=== PATIENT | female | born 1960 | race Caucasian/White ===

== ENCOUNTER 2017-12-27 18:49 | Emergency (ER) | payer BC ==
[~2017-12-27 18:49] MED LIST changes: -ALBU2.5V36 INH; -ALBU8.5H IH; -FLUT12HF2 IH; -LEVO-85 PO; -PRED20TA6 PO
--- NOTE | 2017-12-27 18:54 | ER Report ---
History and Physical Time Seen By MD: 18:54 HPI/ROS CHIEF COMPLAINT: Dyspnea, fever, elevated d-dimer HISTORY OF PRESENT ILLNESS: 57-year-old female with a history of asthma a distant smoker, approximate 7 pack years. Presents with cold symptoms that started last week. He was feeling better. But on Friday she developed vomiting and diarrhea. She subsequently got sick on night with a productive cough and increasing shortness of breath. Tonight she presents to urgent cares severely short of breath. Her pulse ox was noted to be low. She required 2 L to get in the low 90s. She has never been on O2 except with a previous pneumonia. There is extensive diagnostic evaluation was performed at urgent care. See diagnostic laboratory work, EKG. There was a negative troponin but an elevated d-dimer of 2.65. S2 x-ray shows bilateral infiltrates. On arrival here, the patient has a fever to 102.9. She appears quite ill, ta chycardic to 115 and has increased work of breathing. Blood cultures are drawn here. Patient will be sent for pulmonary angiogram. REVIEW OF SYSTEMS: Respiratory: As above Cardiovascular: No chest pain, no palpitations. Gastrointestinal: As above Musculoskeletal: No back pain. Allergies: Coded Allergies: No Known Drug Allergies (Verified , 02/28/10) Home Meds Active Scripts Albuterol Sulfate 0.083% (ALBUTEROL SULFATE 0.083%) 2.5 Mg/3 Ml Vial.neb, 2.5 MG INH QID PRN for asthma symptoms, #25 INH Prov:VENITA CHRISTENSEN DO 12/27/17 Prednisone (PREDNISONE) 20 Mg Tablet, 40 MG PO QDAY for reduce long inflammation, #12 Prov:VENITA CHRISTENSEN DO 12/27/17 Levofloxacin 500 Mg Tab (LEVAQUIN 500 MG TAB) 500 Mg Tablet, 500 MG PO DAILY for infection, #6 TAB Prov:VENITA CHRISTENSEN DO 12/27/17 Reported Medications Albuterol Sulfate 90 Mcg/Act (PROAIR HFA 90 MCG/ACT) 8.5 Gm Hfa.aer.ad, 1-2 PUFF IH 3-4XD, INHALER 12/27/17 Fluticasone/Salmeterol (ADVAIR HFA 115-21 MCG INHALER) 12 Gm Hfa.aer.ad, 12 GM IH 12/27/17 Discontinued Reported Medications Ketorolac Tromethamine (Toradol) 10 Mg Tab, 10 MG PO Q6H, #16 TAB 0 Refills TAKE 1 BY MOUTH EVERY 6 HOURS. 03/01/10 Acetaminophen/Hydrocodone (Lortab 5/325 Mg) 5 Mg/325 Mg Tab, 1 TAB PO Q4H PRN, #30 TAB 0 Refills TAKE 1 OR 2 TABLETS BY MOUTH EVERY 4 HOURS NEEDED FOR PAIN. TAKE WITH FOOD. 03/01/10 Reviewed Nurses Notes: Yes Old Medical Records Reviewed: Yes Constitutional Vital Sign - Last 24 Hours 12/27/17 12/27/17 12/27/17 12/27/17 18:54 18:56 19:00 19:04 Temp 102.9 Pulse 115 113 Resp 20 9 B/P (MAP) 136/87 (103) 136/87 138/81 (100) Pulse Ox 92 96 O2 Delivery Nasal Cannula 12/27/17 12/27/17 12/27/17 12/27/17 19:19 19:30 19:30 19:34 Pulse 114 114 114 Resp 24 20 20 B/P (MAP) 118/83 (95) Pulse Ox 100 94 12/27/17 12/27/17 12/27/17 12/27/17 19:34 19:38 19:58 20:00 Pulse 112 Resp 20 B/P (MAP) 111/67 (82) 108/62 (77) O2 Flow Rate 2.0 12/27/17 12/27/17 12/27/17 12/27/17 20:04 20:09 20:24 20:30 Temp 100.9 Pulse 110 108 109 Resp 16 18 19 B/P (MAP) 108/61 (77) Pulse Ox 90 12/27/17 12/27/17 12/27/17 12/27/17 20:35 20:50 21:00 21:05 Pulse 105 103 100 Resp 25 20 17 B/P (MAP) 110/64 (79) Pulse Ox 92 93 82 O2 Delivery Room Air 12/27/17 12/27/17 12/27/17 12/27/17 21:10 21:20 21:30 21:35 Pulse 98 Resp 20 15 B/P (MAP) 93/60 (71) Pulse Ox 84 94 94 O2 Delivery Room Air Nasal Cannula Nasal Cannula O2 Flow Rate 2 2 12/27/17 21:40 Pulse 85 Resp 18 B/P (MAP) 102/60 (74) Pulse Ox 95 O2 Delivery Nasal Cannula O2 Flow Rate 2 Physical Exam General Appearance: The patient is alert, has no immediate need for airway protection and no current signs of toxicity. Slightly pale appearing, skin warm and dry, fatigued and tired, mild air hunger, respiratory rate mildly elevated to 24. Pulse ox 92% on 2 L HEENT: Pupils equal and round no injection. TMs normal, oropharynx with mild erythema, no exudate or petechiae Respiratory: Decreased breath sounds bilaterally, faint Piercy wheezing and Ral es noted bilaterally in the bases Cardiac: regular rate and rhythm Gastrointestinal: Abdomen is soft and non tender, no masses, bowel sounds normal. Musculoskeletal: Neck: Neck is supple and non tender. No lymphadenopathy or JVD noted Extremities have full range of motion and are non tender. No calf tenderness, no edema Skin: No rashes or lesions. DIFFERENTIAL DIAGNOSIS: After history and physical exam differential diagnosis was considered for adult fever including but not limited to viral syndromes including influenza, urinary tract infection, pneumonia and sepsis. Medical Decision Making Data Points Result Diagram: 12/27/171925 Laboratory Hematology Test 12/27/17 19:10 12/27/17 19:12 12/27/17 19:26 Lactate 1.7 mmol/L (0.7-2.1) Influenza Virus Type A (PCR) Negative (NEGATIVE) Influenza Virus Type B (PCR) Negative (NEGATIVE) Red Blood Count 5.18 M/uL (4.17-5.56) Mean Corpuscular Volume 90.1 fL (80.0-96.0) Mean Corpuscular Hemoglobin 30.9 pg (26.0-33.0) Mean Corpuscular Hemoglobin Concent 34.3 g/dL (32.0-36.0) Red Cell Distribution Width 13.1 % (11.5-14.5) Mean Platelet Volume 8.1 fL (7.2-11.1) Neutrophils % (Manual) 83 % (39.4-72.5) Band Neutrophils % 3 % Lymphocytes % (Manual) 6 % (17.6-49.6) Atypical Lymphocytes % 3 % Monocytes % (Manual) 4 % (4.1-12.4) Eosinophils % (Manual) 1 % (0.4-6.7) Basophils % (Manual) 0 % (0.3-1.4) Chemistry Test 12/27/17 19:10 12/27/17 19:12 12/27/17 19:26 Lactate 1.7 mmol/L (0.7-2.1) Influenza Virus Type A (PCR) Negative (NEGATIVE) Influenza Virus Type B (PCR) Negative (NEGATIVE) White Blood Count 7.8 k/uL (4.5-11.0) Red Blood Count 5.18 M/uL (4.17-5.56) Hemoglobin 16.0 g/dL (12.0-16.0) Hematocrit 46.7 % (34.0-47.0) Mean Corpuscular Volume 90.1 fL (80.0-96.0) Mean Corpuscular Hemoglobin 30.9 pg (26.0-33.0) Mean Corpuscular Hemoglobin Concent 34.3 g/dL (32.0-36.0) Red Cell Distribution Width 13.1 % (11.5-14.5) Platelet Count 197 K/uL (150-450) Mean Platelet Volume 8.1 fL (7.2-11.1) Neutrophils % (Manual) 83 % (39.4-72.5) Band Neutrophils % 3 % Lymphocytes % (Manual) 6 % (17.6-49.6) Atypical Lymphocytes % 3 % Monocytes % (Manual) 4 % (4.1-12.4) Eosinophils % (Manual) 1 % (0.4-6.7) Basophils % (Manual) 0 % (0.3-1.4) Microbiology Microbiology Date/Time Source Procedure Growth Status 12/27/17 19:11 Blood Peripheral Draw Blood Culture - Preliminary NO GROWTH AFTER 1 DAY, REINCUBATED Resulted 12/27/17 19:10 Blood Peripheral Draw Blood Culture - Preliminary NO GROWTH AFTER 1 DAY, REINCUBATED Resulted EKG/Imaging EKG Interpretation 12 lead EK Rhythm: Sinus tachycardia, rate 112 bpm [place]: normal QRS: normal ST segments: normal, no minute of ischemia or dysrhythmia Imaging Results: CT scan of the CTA pulmonary angiogram was obtained. The results of the study are CTA CHEST WW/O CNTR (PULM ANG) HISTORY: BIlat inf elevated d-dimer 2.5 One of the following dose optimization techniques was utilized in the performance of this exam: Automated exposure control; adjustment of the mA and/or kV according to the patient's size; or use of an iterative reconstruction technique. Specific details can be referenced in the facility's radiology CT exam operational policy. TECHNIQUE: CTA chest with contrast. 3D coronal slab MIPs and 2D re constructions in the coronal and sagittal planes were also created. CONTRAST: 75 mL of Isovue-370 COMPARISON: None. FINDINGS: Vessels: Well-opacified pulmonary arteries with no intraluminal filling defect to suggest a pulmonary embolus. Heart and pericardium: Aortic arch is well-maintained. Brachycephalic vessels are normal. Mediastinum and hilum: Negative. Lymph nodes: There are scattered moderately prominent lymph nodes seen in both hilar regions with confluence lymph node mass of approximately 1.7 cm in the right hilum (image 134. Similar-appearing lymph node or masses seen in the left hilum (image 144) there are also apparent reactive periaortic lymph nodes measuring up to 1.5 cm in size as well as pretracheal and subcarinal lymph nodes of similar sizes. Lungs/pleura: There is extensive interstitial alveolar infiltrative change throughout the left lower lung occupying most of the posterior lateral and anterior segments. Extends to a lesser degree in the lingular segment. Patchy less extensive infiltrative changes seen in the right lower lung involving the superior segment as well as the lateral posterior medial segments of the left lower lung. Visualized upper abdomen: Negative. Lower neck: Negative. Bones/soft tissues: Negative. IMPRESSION: 1. Bilateral lower lobe pneumonic infiltrates left greater than right. This is associated with reactive adenopathy 2. No evidence of pulmonary embolus. The study was read by the radiologist. I viewed the images myself on the PACS system. ED Course/Re-evaluation Clinical Indication for ER IV: Hydration, IV Access ED Course Patient was admitted to an examination room. H&P was done. The differential diagnoses was considered. Data from urgent care was reviewed. Chest x-ray shows bilateral infiltrates. White blood cell count is 8.5 with a left shift. Remainder of the diagnostic laboratories are unremarkable. Troponin is negati ve. D-dimer 2.57. Patient was sent over with a peripheral IV for CTA pulmonary angiogram. A lactate, EKG repeat CBC with manual differential, influenza, and blood cultures were ordered. Patient was treated with Solu- Medrol 125 mg, a DuoNeb and 1 L of saline wide open. She should be on sepsis p rotocol. Patient's CT angiogram is negative. Her results were discussed with her. I did offer her admission. She would like to go home, however. Home oxygen will be set up. Since she is hypoxic. Her daughter is a nurse urinary emergency department and is discussed this with her at length and she is agreeable to going home. I think it safe with her current vital signs. Her lactate was not elevated. She is given 2 g of Rocephin IV, Levaquin 500 mg by mouth suggest heart home on Levaquin. Prednisone. She has access to a nebulizer at home. Home O2 was arranged. Patient's discharged home. Patient is advised a low threshold return for any worsening. Decision to Disposition Date: Dec 27, 2017 Decision to Disposition Time: 19:16 Depart Departure Latest Vital Signs Vital Signs Date Time Temp Pulse Resp B/P (MAP) Pulse Ox O2 Delivery O2 Flow Rate FiO2 12/27/17 21:40 85 18 102/60 (74) 95 Nasal Cannula 2 12/27/17 20:30 100.9 Impression: Primary Impression: Bilateral pneumonia Additional Impressions: History of asthma Hypoxia Condition: Improved Disposition: HOME OR SELF-CARE Referrals: [facility] (PCP) New Scripts Albuterol Sulfate 0.083% (ALBUTEROL SULFATE 0.083%) 2.5 Mg/3 Ml Vial.neb 2.5 MG INH QID PRN for asthma symptoms, #25 INH Prov: VENITA CHRISTENSEN DO 12/27/17 Prednisone (PREDNISONE) 20 Mg Tablet 40 MG PO QDAY for reduce long inflammation, #12 Prov: VENITA CHRISTENSEN DO 12/27/17 Levofloxacin 500 Mg Tab (LEVAQUIN 500 MG TAB) 500 Mg Tablet 500 MG PO DAILY for infection, #6 TAB Prov: VENITA CHRISTENSEN DO 12/27/17 Departure Forms: ER Transition Record, Home Oxygen, Nebulizer RX, Home Oxygen Company Chosen by Patient: [employer] Medical Equipment-Oxygen: Oxygen Concentrator, Portable Oxygen Gas Reason for Use/Diagnosis: Bilateral pneumonia and hypoxia, room air saturation 85%, requiring 2 L Start Date of the Order: Dec 27, 2017 Dosage or Concentration (if applicable) - LPM: 2 Route of Administration (if applicable): Nasal Cannula Frequency of Use: Continuous Duration Home O2 Required: 99 Duration Units: Days Room Air Oxygen Saturation: 78 ER Prescribing Physician's Name: Venita Christensen Patient Portal Information Patient Instructions: Asthma (ED), Community Acquired Pneumonia (ED) Additional Instructions: Follow-up with your physician on Friday for recheck Return to the ER for any worsening Problem Qualifiers Primary Impression: Bilateral pneumonia Pneumonia type: due to unspecified organism Lung location: lower lobe of lung Qualified Codes: J18.1 - Lobar pneumonia, unspecified organism VENITA CHRISTENSEN DO Dec 27, 2017 18:54
[2017-12-27] MEDS ORDERED: NS(*) 0.9% 1000 ML BAG 1,000 ML IV ONE ×2 (19:00→20:25)
[2017-12-27] MEDS ORDERED: methylPREDNIS SUCC 125 MG/2ML IVP ONE (19:00)
[2017-12-27] MEDS ORDERED: ALBUTEROL/IPRATROPIUM 3 ML NEB NEB ONE ×2 (19:00→21:10)
[2017-12-27] MEDS ORDERED: FLUT12HF2 IH (19:02)
[2017-12-27] MEDS ORDERED: ALBU8.5H IH (19:02)
[2017-12-27] MEDS ORDERED: ACETAMINOPHEN 325 MG TAB PO ONE (19:10)
[2017-12-27] MEDS ORDERED: IOPAMIDOL 76% 75 ML INFUS BTL 75 ML ONE (19:14)
[2017-12-27] MEDS ORDERED: NS(*) 0.9% 50 ML BAG 50 ML ONE (19:14)
[2017-12-27 19:35] LABS: PLATELET COUNT, AUTOMATED 197 K/uL (150-450)
[2017-12-27] MEDS ORDERED: cefTRIAXone 2 GM VIAL IVP ONE (20:50)
[2017-12-27] MEDS ORDERED: LEVOFLOXACIN 500 MG TAB PO ONE (20:50)
--- NOTE | 2017-12-27 20:51 | EKG ---
FACILITY: [facility] - [place] PATIENT NAME: KATRIN LOVE : [id number] MR: [id number] V: [id number] EXAM DATE: ORDERING PHYSICIAN: VENITA CRESPO TECHNOLOGIST: VALARIE Test Reason : DYSPNEA Blood Pressure : / mmHG Vent. Rate : 112 BPM Atrial Rate : 112 BPM P-R Int : 130 ms QRS Dur : 078 ms QT Int : 336 ms P-R-T Axes : 073 085 065 degrees QTc Int : 458 ms Sinus tachycardia No acute appearing findings No old EKGs Confirmed by MARGARITA STACY ([id number]) on 12/27/2017 9:11:25 PM Referred By: Confirmed By:MARGARITA STACY
[2017-12-27] MEDS ORDERED: KETOROLAC 30 MG/ML VIAL IVP ONE (20:55)
[2017-12-27] MEDS ORDERED: ONDANSETRON 4 MG/2 ML VIAL IVP ONE (20:55)
--- NOTE | 2017-12-27 20:55 | RADIOLOGY IMAGING REPORT ---
FACILITY: [facility] PATIENT NAME: Jeni Faustin : 1960 MR: [id number] V: [id number] EXAM DATE: ORDERING PHYSICIAN: VENITA CRESPO TECHNOLOGIST: Location: [facility] [place] Patient: Jeni Faustin : 1960 Visit/Account:[id number] Date of Sevice: 12/27/2017 CTA CHEST WW/O CNTR (PULM ANG) HISTORY: BIlat inf elevated d-dimer 2.5 One of the following dose optimization techniques was utilized in the performance of this exam: Autom ated exposure control; adjustment of the mA and/or kV according to the patient's size; or use of an i terative reconstruction technique. Specific details can be referenced in the facility's radiology C T exam operational policy. TECHNIQUE: CTA chest with contrast. 3D coronal slab MIPs and 2D reconstructions in the coronal and sagittal planes were also created. CONTRAST: 75 mL of Isovue-370 COMPARISON: None. FINDINGS: Vessels: Well-opacified pulmonary arteries with no intraluminal filling defect to suggest a pulmonar y embolus. Heart and pericardium: Aortic arch is well-maintained. Brachycephalic vessels are normal. Mediastinum and hilum: Negative. Lymph nodes: There are scattered moderately prominent lymph nodes seen in both hilar regions with co nfluence lymph node mass of approximately 1.7 cm in the right hilum (image 134. Similar-appearing ly mph node or masses seen in the left hilum (image 144) there are also apparent reactive periaortic lym ph nodes measuring up to 1.5 cm in size as well as pretracheal and subcarinal lymph nodes of similar sizes. Lungs/pleura: There is extensive interstitial alveolar infiltrative change throughout the left lower lung occupying most of the posterior lateral and anterior segments. Extends to a lesser degree in t he lingular segment. Patchy less extensive infiltrative changes seen in the right lower lung involvi ng the superior segment as well as the lateral posterior medial segments of the left lower lung. Visualized upper abdomen: Negative. Lower neck: Negative. Bones/soft tissues: Negative. IMPRESSION: 1. Bilateral lower lobe pneumonic infiltrates left greater than right. This is associated with reac tive adenopathy 2. No evidence of pulmonary embolus. Report Dictated By: Jonathon Lopez MD at 12/27/2017 8:43 PM Report E-Signed By: Jonathon Lopez MD at 12/27/2017 8:51 PM WSN:[email or web address]
[2017-12-27] MEDS ORDERED: LEVO-85 PO (21:05)
[2017-12-27] MEDS ORDERED: ALBU2.5V36 INH (21:05)
[2017-12-27] MEDS ORDERED: PRED20TA6 PO (21:05)
[2017-12-27 21:40] VITALS: BP 102/60
== END 2017-12-27 21:53 | disposition home or self-care (01) ==
LOC: ER 19:14
DX: J18.1 Lobar pneumonia, unspecified organism (principal); J45.909 Unspecified asthma, uncomplicated; R09.02 Hypoxemia
CPT/HCPCS: 71275; 83605; 85007; 85027; 87040; 87502; 93005; 94640; 96361; 96374; 96375; 99284; J0696; J1885; J2405; J2930; J7030; J7050; Q9967

== ENCOUNTER → 2017-12-27 | Outpatient (REF) | payer BC ==
[~2017-12-27] MED LIST: ALBU2.5V36 INH; ALBU8.5H IH; FLUT12HF2 IH; KET10 PO; LEVO-85 PO; LOR5/325 PO; PRED20TA6 PO
[2017-12-27 18:14] LABS: PLATELET COUNT, AUTOMATED 221 K/uL (150-450)
== END ==
PROVIDERS: ATTEND Nurse Practitioner Family
DX: R07.9 Chest pain, unspecified (principal)
CPT/HCPCS: 82040; 82247; 82310; 82374; 82435; 82565; 82947; 84075; 84132; 84155; 84295; 84450; 84460; 84484; 84520; 85025; 85379

== ENCOUNTER → 2017-12-31 | Outpatient (CLI) | payer BC ==
[~2017-12-31] MED LIST changes: +ALBU2.5V36 INH; +ALBU8.5H IH; +FLUT12HF2 IH; +LEVO-85 PO; +PRED20TA6 PO
--- NOTE | 2017-12-31 20:59 | RADIOLOGY IMAGING REPORT ---
FACILITY: [facility] PATIENT NAME: Jeni Faustin : 1960 MR: [id number] V: [id number] EXAM DATE: ORDERING PHYSICIAN: VENITA CRESPO TECHNOLOGIST: [place] [facility] [place] Patient: Jeni Faustin : 1960 Visit/Account:[id number] Date of Sevice: 12/31/2017 2 VIEWS CHEST INDICATION: Bilateral pneumonia. COMPARISON: CT of chest on 12/27/2017. FINDINGS: Cardiomediastinal silhouette and pulmonary vessels within normal limits. There is improved aeration to both lower lobes with residual interstitial opacities present. The mike ining lung thomas are clear. No pneumothorax. There is mild blunting the costophrenic angles which appears be due to some pleural fat seen on CT scan. No discrete effusion. No discrete nodule. Upper abdomen is unremarkable. No acute bony abnormality. IMPRESSION: 1. Improved aeration to both lower lobes with mild residual interstitial infiltrates. Report Dictated By: Jeferson Duckworth at 12/31/2017 8:48 PM Report E-Signed By: Jeferson Duckworth at 12/31/2017 8:54 PM WSN:[id number]
== END ==
LOC: RAD 20:28
PROVIDERS: ATTEND Emergency Medicine
DX: J18.9 Pneumonia, unspecified organism (principal)
CPT/HCPCS: 71046